=== PATIENT | female | born 1995 | race Caucasian/White ===

== ENCOUNTER 2017-10-04 12:11 | Emergency (ER) | payer BC, OTHER ==
[~2017-10-04] VITALS: Ht 160 cm; Wt 59.3 kg
[2017-10-04 12:13] VITALS: TEMP 36.8; Ht 160 cm; Wt 59.3 kg
[2017-10-04 12:57] VITALS: BP 121/70; PULSE 107; O2SAT 98
--- NOTE | 2017-10-04 12:58 | EMERGENCY ROOM VISIT NOTE ---
History Report prepared by Gracyibe: Verenice Silverman Under the Supervision of: Dr. Joey Bull M.D. First contact with patient: 12:28 Chief Complaint: PELVIC PAIN Stated Complaint: DIARRHEA, VAGINAL PAIN, SICK History of Present Illness The patient is a 22 year old female who presents to the Emergency Room with complaints of persistent pelvic and vaginal pain since last night. She is currently 27 weeks . Last night, she was eating pizza with friends when she developed pelvic and vaginal pain, which she rates as a 5/10 in severity and states it has worsened overnight. She denies any vaginal bleeding but states she has been nauseous and has had diarrhea since this morning. She denies any trauma to her abdomen. She denies any recent fevers. The patient has a history of known placenta previa. Source of History: patient Onset: last night Position: pelvis Symptom Intensity: 5/10 Timing: worsening Associated Symptoms: + nausea, + diarrhea, No fevers Review of Systems See HPI for pertinent positives and negatives. A total of ten systems were reviewed and were otherwise negative. Past Medical & Surgical Medical Problems: (1) Pelvic pain (2) Placenta previa (3) related nausea, antepartum Social History Smoking Status: Never Smoker Alcohol Use: none Drug Use: none Marital Status: single Housing Status: lives with family Occupation Status: employed Current/Historical Medications Scheduled Multivit/Min/Iron/Fol Ac/Pren ( Vitamin), 1 TAB PO DAILY Allergies Coded Allergies: Latex1 -Allergic Contact Dermititis (Verified Allergy, Unknown, HIVES, 07/11) Physical Exam Vital Signs Date Time Temp Pulse Resp B/P (MAP) Pulse Ox O2 Delivery O2 Flow Rate FiO2 10/04/17 12:57 107 20 121/70 98 10/04/17 12:13 36.8 110 20 118/73 99 Room Air Physical Exam GENERAL: She is oriented to person, place, and time. She appears well-developed and well-nourished. She does not appear distressed. ____ HENT: Exam performed. Head: Normocephalic and atraumatic. Right Ear: External ear normal. No mastoid tenderness. Left Ear: External ear normal. No mastoid tenderness. Mouth/Throat: The oropharynx is clear and moist. No trismus in the jaw. No dental abscesses or uvula swelling. No oropharyngeal exudate or tonsillar abscesses. ____ EYES: Conjunctivae and EOM are normal. Pupils are equal, round, and reactive to light. Right eye exhibits no discharge. Left eye exhibits no discharge. No scleral icterus. ____ NECK: Normal range of motion. Neck supple. No JVD present. No spinous process tenderness present. No carotid bruit present. No rigidity. No tracheal deviation and normal range of motion present. No Brudzinski's sign and no Kernig 's sign noted. ____ CV: Normal rate, regular rhythm, normal heart sounds and intact distal pulses. There is no peripheral edema. Palpable radial pulses bue. ____ PULM/CHEST: Effort normal and breath sounds normal. No respiratory distress. No stridor. She has no wheezes. She has no rales. Chest Wall: She exhibits no tenderness. ____ ABD: Gravid abdomen. Bowel sounds are normal. Mild pain on palpation of the suprapubic, right lower and left lower quadrant. There is no rebound, no guarding, no Mckeon's sign and no tenderness at McBurney's point. Rovsig negative MUSC/SKEL: Normal range of motion. There is no peripheral edema, tenderness or deformity. LYMPH: No cervical adenopathy. ____ NEURO: She is alert and oriented to person, place, and time. She has normal strength. No cranial nerve deficit or sensory deficit. Coordination and gait normal. GCS eye subscore is 4. GCS verbal subscore is 5. GCS motor subscore is 6. cerebellar tests wnl. ____ SKIN: Skin is warm and dry. She is not diaphoretic. ____ PSYCH: She has a normal mood and affect. She behavior is normal. Judgment and thought content normal. ____ Medical Decision & Procedures ED Course 1241: The patient was evaluated in room A10. A complete history and physical exam was performed.The patient was immediately evaluated and given that she is 27 weeks and having lower abdominal pain, she will be sent to Labor and Delivery for evaluation and monitoring. Medical Decision The patient was immediately evaluated and given that she is 27 weeks and having lower abdominal pain, she will be sent to Labor and Delivery for evaluation and monitoring. Medication Reconcilliation Current Medication List: was personally reviewed by me Blood Pressure Screening Patient's blood pressure: Normal blood pressure Blood pressure disposition: Did not require urgent referral Impression Primary Impression: Abdominal pain in Scribe Attestation The scribe's documentation has been prepared under my direction and personally reviewed by me in its entirety. I confirm that the note above accurately reflects all work, treatment, procedures, and medical decision making performed by me. The chart was completed utilizing [employer] Speech voice recognition software. Grammatical errors, random word insertions, pronoun errors, and incomplete sentences are an occasional consequence of this system due to software limitations, ambient noise, and hardware issues. Any formal questions or concerns about the content, text, or information contained within the body of this dictation should be directly addressed to the physician for clarification. Departure Information Dispostion Other (Go directly to [facility] Labor and Delivery ) Patient Instructions My [facility] Additional Instructions Go directly go directly to labor and delivery Problem Qualifiers Primary Impression: Abdominal pain in Trimester: second trimester Qualified Codes: O26.892 - Other specified related conditions, second trimester; R10.9 - Unspecified abdominal pain
[2017-10-04] MEDS ORDERED: PRENTAB26 PO (13:56)
== END 2017-10-04 12:58 | disposition home or self-care (01) ==
LOC: C.EDB 12:13 → C.EDA 12:58
DX: O99.89 Other specified diseases and conditions complicating pregnancy, childbirth and the puerperium (principal); Z3A.27 27 weeks gestation of pregnancy; Z91.040 Latex allergy status

== ENCOUNTER 2017-10-04 12:59 | Outpatient (CLI) | payer BC, OTHER ==
[~2017-10-04] VITALS: Ht 160 cm; Wt 56.7 kg
[2017-10-04] MEDS ORDERED: ONDANSETRON INJ 2 MG/ML 2 ML VIAL IV PRN (13:45)
[2017-10-04] MEDS ORDERED: PRENTAB26 PO (13:56)
[2017-10-04 13:59] VITALS: Ht 160 cm; Wt 56.7 kg
[2017-10-04] MEDS ORDERED: LACTATED RINGER'S 1000ML 1,000 ML IV SCH (14:00)
[2017-10-04] MEDS ORDERED: LACTATED RINGER'S 1000ML 500 ML IV ONE (14:00)
== END 2017-10-04 14:25 | disposition home or self-care (01) ==
LOC: C.LD 12:59 → C.OPB 12:59
PROVIDERS: ATTEND Obstetrics & Gynecology
DX: O26.899 Other specified pregnancy related conditions, unspecified trimester (principal); R11.0 Nausea; R10.2 Pelvic and perineal pain; Z3A.00 Weeks of gestation of pregnancy not specified